=== PATIENT | male | born 1980 | race Caucasian/White ===

== ENCOUNTER 2019-02-02 08:43 | Emergency (ER) | payer SELFPAY ==
[~2019-02-02] VITALS: Ht 175.3 cm; Wt 77.7 kg
[2019-02-02 08:45] VITALS: BP 144/78
[2019-02-02] MEDS ORDERED: KETOROLAC 30 MG/1 ML ONE (09:17)
[2019-02-02] MEDS ORDERED: METHOCARBAMOL 750 MG TABLET ONE (09:17)
[2019-02-02] MEDS ORDERED: KETOROLAC 30 MG/1 ML IM ONE (09:30)
[2019-02-02] MEDS ORDERED: METHOCARBAMOL 750 MG TABLET PO ONE (09:30)
[2019-02-02] MEDS ORDERED: OXYcodone/APAP 5/325MG TABLET ONE (10:07)
[2019-02-02] MEDS ORDERED: OXYcodone/APAP 5/325MG TABLET PO ONE (10:30)
[2019-02-02 10:32] LABS: BASOPHILS # (AUTO) 0.04 x10^3/uL (0-0.1); BASOPHILS % (AUTO) 1 % (0-1); EOSINOPHILS # (AUTO) 0.08 x10^3/uL (0-0.4); EOSINOPHILS % (AUTO) 1 % (1-7); LYMPHOCYTES # (AUTO) 1.74 x10^3/uL (1-3.4); LYMPHOCYTES % (AUTO) 25 % (22-44); MD NO; MEAN CORPUSCULAR HEMOGLOBIN 28.9 pg (27.5-34.5); MEAN CORPUSCULAR HGB CONC 32.8 g/dL (33.2-36.2); MEAN CORPUSCULAR VOLUME 87.9 fL (81-97); MONOCYTES % (AUTO) 6 % (2-9); NEUTROPHILS % (AUTO) 68 % (42-75); PLATELET COUNT 254 x10^3/uL (130-400); RED BLOOD COUNT 5.46 x10^6/uL (4.38-5.82)
[2019-02-02 10:39] LABS: ALBUMIN 3.8 g/dL (3.4-5.0); ANION GAP 4 mmol/L (5-15); CALCIUM 8.5 mg/dL (8.5-10.1); CHLORIDE 109 mmol/L (98-107); CREATININE 1.06 mg/dL (0.7-1.3)
[2019-02-02 11:26] LABS: MICROSCOPIC NOT IND
[2019-02-02 11:31] LABS: CULTURE INDICATED? NO
== END 2019-02-02 11:43 | disposition home or self-care (01) ==
LOC: ED 09:09
DX: S39.012A Strain of muscle, fascia and tendon of lower back, initial encounter (principal); F17.210 Nicotine dependence, cigarettes, uncomplicated; X58.XXXA Exposure to other specified factors, initial encounter; Y93.89 Activity, other specified; Y92.89 Other specified places as the place of occurrence of the external cause; Y99.8 Other external cause status
CPT/HCPCS: 36415; 72110; 80048; 81003; 82040; 85025; 96372; 99284; J1885

== ENCOUNTER 2019-08-27 19:15 | Emergency (ER) | payer OTHER ==
[~2019-08-27] VITALS: Ht 175.3 cm; Wt 72.2 kg
[2019-08-27] MEDS ORDERED: IBUPROFEN 200 MG TABLET PO ONE (19:30)
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
[2019-08-27] MEDS ORDERED: IBUPROFEN 600 MG TABLET ONE (19:52)
--- NOTE | 2019-08-27 20:55 | NUR ---
Sling and wrist splint applied. Pt instructed on how to place items on and the use intended for each. Pt given discharge instructions with one prescription for Ibuprofen 600mg. Pt instructed on medication to include use, storing, disposal and side effects. Pt verbalizes understanding of all instructions. Pt given work note for the rest of this week. Pt ambulated out of ED per pedis.
[2019-08-27 20:57] VITALS: BP 122/72
== END 2019-08-27 20:59 | disposition home or self-care (01) ==
LOC: ED 20:00
DX: S43.102A Unspecified dislocation of left acromioclavicular joint, initial encounter (principal); G89.11 Acute pain due to trauma; M25.531 Pain in right wrist; F17.200 Nicotine dependence, unspecified, uncomplicated; V19.9XXA Pedal cyclist (driver) (passenger) injured in unspecified traffic accident, initial encounter; Y93.89 Activity, other specified; Y92.89 Other specified places as the place of occurrence of the external cause; Y99.8 Other external cause status
CPT/HCPCS: 29125; 99284